=== PATIENT | female | born 1980 | race American Indian/Alaskan Native ===

== ENCOUNTER 2020-11-24 07:06 | Emergency (ER) | payer OTHER ==
--- NOTE | 2020-11-24 07:29 | Emergency Department Report ---
ED Seizure HPI - General Stated Complaint: POSS SZ Time Seen by Provider: 11/24/20 07:17 Source: patient, family ( at the bedside), EMS Mode of arrival: Stretcher Limitations: No Limitations - History of Present Illness Initial Comments: Chief complaint: Seizure HPI: History obtained by . This is a 40-year-old female without significant past medical history who presents with seizure activity. Patient came home. She yelled out to her for help while sitting on the toilet. She stated that "something strange is happening to me. I feel like I am leaving my body." Patient then became stiff tense right upper extremity shaking repeatedly. She lost co nsciousness. No evidence of urinary incontinence. Patient's explains that she seems confused and "out of it". No history of seizure Patient started 2 new antibiotics for UTI within the last month. These [facility] [place] [facility] [facility]. Patient also started a new job with [employer]. She is working the film processing shift supervisor. Her shift ends 4:15 AM. Patient does not smoke tobacco, drink alcohol or use recreational drugs. MD Complaint: seizure -: Sudden, This morning Description of Episode: loss of consciousness, tonic-clonic movement Witnessed:: Yes Trauma: No Seizure History: none Place: home Possible Precipitating Event: lack of sleep, other (New antibiotic) Associated Symptoms: denies other symptoms Treatments Prior to Arrival: other (EMS transport) - Related Data Home Medications Medication Instructions Recorded Confirmed Last Taken cefUROXime [Ceftin] 500 mg PO BID 11/24/20 11/24/20 Unknown metroNIDAZOLE [Metronidazole] 250 mg PO QDAY 11/24/20 11/24/20 Unknown Allergies Allergy/AdvReac Type Severity Reaction Status Date / Time No Known Allergies Allergy Verified 11/24/20 07:56 ED Review of Systems ROS: Stated complaint: POSS SZ Other details as noted in HPI Comment: All other systems reviewed and negative Constitutional: denies: fever, malaise Respiratory: denies: cough, shortness of breath Cardiovascular: denies: chest pain Gastrointestinal: denies: abdominal pain, nausea, vomiting Neurological: denies: headache, weakness ED Past Medical Hx - Past Medical History Previous Medical History?: No - Surgical History Past Surgical History?: No - Family History Family history: hypertension - Social History Smoking Status: Never Smoker Substance Use Type: None - Medications Home Medications: Home Medications Medication Instructions Recorded Confirmed Last Taken Type cefUROXime [Ceftin] 500 mg PO BID 11/24/20 11/24/20 Unknown History metroNIDAZOLE [Metronidazole] 250 mg PO QDAY 11/24/20 11/24/20 Unknown History ED Physical Exam - General General appearance: alert, in no apparent distress, other (Patient appeared dazed mildly anxious moving all 4 extremities) - Head Head exam: Present: atraumatic, normocephalic - Eye Eye exam: Present: normal appearance - ENT ENT exam: Present: mucous membranes moist - Neck Neck exam: Present: normal inspection, full ROM - Respiratory Respiratory exam: Present: normal lung sounds bilaterally. Absent: respiratory distress, wheezes, rales, rhonchi, stridor - Cardiovascular Cardiovascular Exam: Present: regular rate, normal rhythm, normal heart sounds. Absent: systolic murmur, diastolic murmur, rubs, gallop - GI/Abdominal GI/Abdominal exam: Present: soft, normal bowel sounds. Absent: distended, tenderness, guarding, rebound - Extremities Exam Extremities exam: Present: normal inspection - Neurological Exam Neurological exam: Present: alert, oriented X3 - Expanded Neurological Exam Expanded Patient oriented to: Present: person, place, time Speech: Present: fluid speech Cranial nerves: EOM's Intact: Normal Sensory exam: Upper Extremity Light Touch: Normal Motor strength exam: RUE: 5, LUE: 5, RLE: 5, LLE: 5 Best Eye Response (Mcgill): (4) open spontaneously Best Motor Response (Manuel): (6) obeys commands Best Verbal Response (Mcgill): (5) oriented Manuel Total: 15 - Psychiatric Psychiatric exam: Present: normal affect, anxious - Skin Skin exam: Present: warm, dry, intact, normal color. Absent: rash ED Course Vital Signs 11/24/20 11/24/20 11/24/20 07:16 07:18 07:30 Temperature 98 F Pulse Rate 86 81 80 Respiratory 12 16 16 Rate Blood Pressure 119/87 119/78 O2 Sat by Pulse 100 100 100 Oximetry 11/24/20 11/24/20 11/24/20 08:01 08:31 09:01 Temperature Pulse Rate 80 74 77 Respiratory 13 13 Rate Blood Pressure 101/65 101/65 104/58 O2 Sat by Pulse 100 100 100 Oximetry 11/24/20 11/24/20 09:31 10:01 Temperature Pulse Rate 78 78 Respiratory 14 14 Rate Blood Pressure 113/60 100/40 O2 Sat by Pulse 99 100 Oximetry ED Medical Decision Making - Lab Data Result diagrams: 11/24/20 07:30 11/24/20 07:30 - EKG Data -: EKG Interpreted by Me EKG shows normal: sinus rhythm, axis, intervals, QRS complexes Rate: normal - EKG Data Interpretation: nonspecific ST-T wave jolene 11/24/20 07:46 EKG obtained 0740 EKG interpreted by me Normal sinus rhythm rate 85 bpm normal axis normal intervals no ST elevation subtle T wave inversion V1 V2 suspect normal variant T wave inversion 11/24/20 10:48 - Radiology Data Radiology results: report reviewed Patient Name: RONIT POSADAS Gender: Female Date of : 1980 Referring Provider: JOSE C ROJAS Organization: [facility] Accession Number: [id number] Requested Date: November 24, 2020 07:18 Report Status: Final Requested Procedure: 1 Procedure Description: CT head/brain wo con Modality: CT Findings Reporting MD: Sunil Harrison Dictation Time: November 24, 2020 07:40 Atmospheric Technician: Not available Linoleum Installer Date: CT head/brain wo con INDICATION: Seizure. TECHNIQUE: All CT scans at this location are performed using CT dose reduction for ALARA by means of automated exposure control. COMPARISON: None available. FINDINGS: There is no evidence of hemorrhage, hydrocephalus, brain edema, or mass effect/mass lesion. There is overall normal brain formation and brain volume for the patient's age. Ventricular and cisternal/sulcal size is normal for age. The included paranasal sinuses and mastoid air cells are clear. The orbits appear unremarkable. IMPRESSION: 1. No acute findings. Signer Name: Sunil Harrison MD Signed: 11/24/2020 7:40 AM Workstation Name: [id number] - Medical Decision Making Seizure: Witnessed by her with aura. Patient completed metronidazole and Ceftin treatment over 2 weeks ago. She started new job requiring her to work night shifts. No previous history of seizure. Patient given seizure precautions. She understands she is not allowed to drive until further outpatient treatment. She will follow-up with her primary physician and neurologist. She referred to neurologist. Work-up all unremarkable. No ischemic changes on EKG to suggest cardiogenic syncope. PERC negative for PE. CT head without intracranial structural abnormality. CBC chemistry magnesium phosphorus urinalysis UDS all within normal limits. hCG negative. Patient was observed for 4 hours without recurrent seizure. GCS 15. Discharged home. Critical care attestation.: If time is entered above; I have spent that time in minutes in the direct care of this critically ill patient, excluding procedure time. ED Disposition Clinical Impression: Seizure Disposition: DC-01 TO HOME OR SELFCARE Is pt being admited?: No Does the pt Need Aspirin: No Condition: Stable Instructions: Seizure, Adult Additional Instructions: You are not allowed to drive, swim or work at tall heights such as a ladder until you are cleared by seizure specialist. Referrals: JAZIEL PEDRAZA MD [Referring] - FARHAD Forms: Work/School Release Form(ED)
[2020-11-24 07:40] LABS: Basophils % (Auto) 0.4 % (0.0-1.8); Eosinophils # (Auto) 0.3 K/mm3 (0.0-0.4); Eosinophils % (Auto) 3.9 % (0.0-4.3); Hematocrit 35.3 % (30.3-42.9); Hemoglobin 11.6 gm/dl (10.1-14.3); Lymphocytes # (Auto) 3.2 K/mm3 (1.2-5.4); Lymphocytes % (Auto) 49.2 % (13.4-35.0); Mean Corpuscular HGB Conc 33 % (30-34); Mean Corpuscular Volume 79 fl (79-97); Monocytes # (Auto) 0.5 K/mm3 (0.0-0.8); Platelet Count 184 K/mm3 (140-440); Red Blood Count 4.49 M/mm3 (3.65-5.03); Red Cell Distribution Width 15.6 % (13.2-15.2)
[2020-11-24 08:04] LABS: Alanine Aminotransferase 17 units/L (7-56); Albumin 3.9 g/dL (3.9-5); BUN/Creatinine Ratio 10; Blood Urea Nitrogen 8 mg/dL (7-17); Calcium 9.5 mg/dL (8.4-10.2)
--- NOTE | 2020-11-24 08:44 | Cat Scan Report ---
CT head/brain wo con INDICATION: Seizure. TECHNIQUE: All CT scans at this location are performed using CT dose reduction for ALARA by means of automated e xposure control. COMPARISON: None available. FINDINGS: There is no evidence of hemorrhage, hydrocephalus, brain edema, or mass effect/mass lesion. There is overall normal brain formation and brain volume for the patient's age. Ventricular and cisternal/sulc al size is normal for age. The included paranasal sinuses and mastoid air cells are clear. The orbits appear unremarkable. IMPRESSION: 1. No acute findings. Signer Name: Sunil Harrison MD Signed: 11/24/2020 8:40 AM Workstation Name: [id number]
--- NOTE | 2020-11-24 09:20 | Electrocardiograph Report ---
[facility] Test Date: 2020-11-24 Test Time: 07:40:13 Pat Name: RONIT POSADAS Department: Room: Gender: F Evaporator: TV : 1980 Requested By: JOSE C ROJAS Order Number: [id number] Reading MD: Moses Dai Measurements Intervals [place] Rate: 86 P: 65 MN: 165 QRS: 65 QRSD: 84 T: 59 QT: 384 QTc: 459 Interpretive Statements Sinus rhythm nonspecific st-t No previous ECG available for comparison Electronically Signed On 11-24-2020 9:20:27 EDT by Moses Dai
[2020-11-24 09:56] LABS: Bacteria,Urine 1+ /HPF (Negative); Bilirubin,Urine NEG (Negative); Blood,Urine NEG (Negative); Color,Urine Colorless (Yellow); Protein,Urine <15 mg/dL mg/dL (Negative); Urobilinogen,Urine < 2.0 mg/dL (<2.0); WBC,Urine < 1.0 /HPF (0.0-6.0)
[2020-11-24 10:10] LABS: Amphetamine Screen,Urine Negative; Benzodiazepines Screen,Urine Negative; Cannabinoid Screen,Urine Negative; Cocaine Screen,Urine Negative; Methadone Screen,Urine Negative; Opiate Screen,Urine Negative
[2020-11-24 12:05] VITALS: BP 107/64
== END 2020-11-24 12:37 | disposition home or self-care (01) ==
LOC: ED 07:06
DX: R56.9 Unspecified convulsions (principal); Z79.899 Other long term (current) drug therapy
CPT/HCPCS: 36415; 70450; 80053; 80307; 80320; 81001; 84703; 85025; 93005; G0480

== ENCOUNTER 2020-11-28 23:00 | Emergency (ER) | payer OTHER ==
[2020-11-28 23:43] VITALS: BP 125/63
[2020-11-29 00:15] LABS: Basophils % (Auto) 0.4 % (0.0-1.8); Eosinophils # (Auto) 0.2 K/mm3 (0.0-0.4); Eosinophils % (Auto) 4.2 % (0.0-4.3); Hematocrit 37.1 % (30.3-42.9); Hemoglobin 12.2 gm/dl (10.1-14.3); Lymphocytes # (Auto) 2.1 K/mm3 (1.2-5.4); Lymphocytes % (Auto) 35.9 % (13.4-35.0); Mean Corpuscular HGB Conc 33 % (30-34); Mean Corpuscular Volume 78 fl (79-97); Monocytes # (Auto) 0.6 K/mm3 (0.0-0.8); Monocytes % (Auto) 10.2 % (0.0-7.3); Platelet Count 193 K/mm3 (140-440); Red Blood Count 4.76 M/mm3 (3.65-5.03); Red Cell Distribution Width 16.1 % (13.2-15.2)
[2020-11-29 00:38] LABS: Alanine Aminotransferase 15 units/L (7-56); Blood Urea Nitrogen 7 mg/dL (7-17); Calcium 8.7 mg/dL (8.4-10.2); Hemolysis Index 3
[2020-11-29 00:44] LABS: BUN/Creatinine Ratio 12
--- NOTE | 2020-11-30 17:51 | Electrocardiograph Report ---
[facility] Test Date: 2020-11-29 Test Time: 00:17:43 Pat Name: RONIT POSADAS Department: ED Room: Gender: F Joint Setter: LALA : 1980 Requested By: JOSE C ROJAS Order Number: [id number] Reading MD: Mikey Love Measurements Intervals [place] Rate: 74 P: 54 MO: 164 QRS: 31 QRSD: 76 T: 40 QT: 403 QTc: 446 Interpretive Statements Sinus rhythm Compared to ECG 11/24/2020 07:40:13 No significant changes Electronically Signed On 11-30-2020 17:50:56 EDT by Mikey Love
== END 2020-11-28 23:59 ==
LOC: ED 23:00
DX: R07.89 Other chest pain (principal); R42 Dizziness and giddiness; Z53.21 Procedure and treatment not carried out due to patient leaving prior to being seen by health care provider
CPT/HCPCS: 36415; 71046; 80053; 84484; 85025; 93005